=== PATIENT | male | born 1980 | race Caucasian/White ===

== ENCOUNTER 2017-12-17 15:08 | Emergency (ER) | END 2017-12-17 16:46 | disposition home or self-care (01) ==

== ENCOUNTER 2018-09-25 21:35 | Emergency (ER) | payer SELFPAY ==
[~2018-09-25] VITALS: Wt 164.3 kg
[~2018-09-25 21:35] MED LIST: HYDR25TA6 PO; IBUP-1542 PO
[2018-09-25] MEDS ORDERED: DOXA1TAB PO (22:34)
[2018-09-25] MEDS ORDERED: AMLO-147 PO (22:34)
[2018-09-25] MEDS ORDERED: POTA20TA96 PO (22:35)
[2018-09-25] MEDS ORDERED: HYDR50TA3 PO (22:35)
[2018-09-25] MEDS ORDERED: OMEP20CA16 PO (22:35)
[2018-09-25] MEDS ORDERED: LISI40TA3 PO (22:36)
[2018-09-25] MEDS ORDERED: OMEG-135 PO (22:36)
[2018-09-25] MEDS ORDERED: EMTR1TAB11 PO (22:36)
--- NOTE | 2018-09-25 23:37 | ERD ---
ER Documentation Chief Complaint Chief Complaint CP RADIATING TO LEFT ARM. LEFT FACIAL NUMBNESS X'S 2 DAYS HPI This is a 38-year-old male who presents for evaluation of chest pain with radiation to left arm, he endorses a tingling sensation and numbness, which is on and off for the last 2 days. He has a history of hypertension, but he is otherwise healthy, he denies leg swelling, he has not had any hemoptysis, he has not had a fever, no nausea or vomiting. He has no prior history of stroke, he has no history of coronary disease. ROS All systems reviewed and are negative except as per history of present illness. Medications Home Meds Reported Medications [place]-3 Fatty Acids/Fish Oil (Fish Oil 1,000 mg Capsule) 1 Each Capsule, 2 EACH PO DAILY, CAP 09/25/18 Emtricitabine-Tenofovir* (Truvada*) 200-300 Mg Tablet, 1 TAB PO DAILY, TAB 09/25/18 Lisinopril* (Lisinopril*) 40 Mg Tablet, 40 MG PO DAILY, #30 TAB 09/25/18 Hydrochlorothiazide* (Hydrochlorothiazide*) 50 Mg Tab, 25 MG PO DAILY, #30 TAB 09/25/18 Potassium Chloride* (Potassium Chloride*) 20 Meq Tablet.er, 20 MEQ PO DAILY, TAB.SA 09/25/18 Omeprazole* (Omeprazole*) 20 Mg Capsule.dr, 20 MG PO DAILY, #30 CAP 09/25/18 Amlodipine Besylate* (Amlodipine Besylate*) 10 Mg Tablet, 10 MG PO DAILY, #30 TAB 09/25/18 Doxazosin Mesylate* (Doxazosin Mesylate*) 1 Mg Tablet, 1 MG PO HS, TAB 09/25/18 Discontinued Scripts Ibuprofen* (Motrin*) 600 Mg Tab, 600 MG PO Q6, #20 TAB Prov:CHERY WORRELL MD 12/17/17 Hydrochlorothiazide* (Hydrochlorothiazide*) 25 Mg Tab, 25 MG PO DAILY, #30 TAB Prov:CHERY WORRELL MD 12/17/17 Allergies Allergies: Coded Allergies: No Known Allergy (Unverified , 09/25/18) PMhx/Soc History of Surgery: No Anesthesia Reaction: No Hx Neurological Disorder: No Hx Respiratory Disorders: No Hx Cardiac Disorders: Yes (HTN) Hx Psychiatric Problems: No Hx Miscellaneous Medical Probl: No Hx Alcohol Use: No Hx Substance Use: No Hx Tobacco Use: No Smoking Status: Never smoker FmHx Family History: No diabetes Physical Exam Vitals Vital Signs Date Temp Pulse Resp B/P (MAP) Pulse Ox O2 O2 Flow FiO2 Time Delivery Rate 09/25/18 91 18 129/73 98 Room Air 23:41 (91) 09/25/18 98.4 99 20 159/93 96 21:39 (115) Physical Exam Const: No acute distress Head: Atraumatic Eyes: Normal Conjunctiva ENT: Normal External Ears, Nose and Mouth. Neck: Full range of motion. No meningismus. Resp: Clear to auscultation bilaterally Cardio: Regular rate and rhythm, no murmurs, no JVD Abd: Soft, non tender, non distended. Normal bowel sounds Skin: No petechiae or rashes Back: No midline or flank tenderness Ext: No cyanosis, or edema Neur: Awake and alert, cranial nerves II through XII intact, strength 5 out of 5 bilaterally, so no cerebellar ataxia Psych: Normal Mood and Affect Result Diagram: 09/25/183 09/25/182212 Results 24 hrs Laboratory Tests Test 09/25/18 22:13 White Blood Count 8.6 10^3/ul Red Blood Count 4.62 10^6/ul Hemoglobin 12.1 g/dl Hematocrit 37.1 % Mean Corpuscular Volume 80.3 fl Mean Corpuscular Hemoglobin 26.2 pg Mean Corpuscular Hemoglobin Concent 32.6 g/dl Red Cell Distribution Width 15.0 % Platelet Count 276 10^3/UL Mean Platelet Volume 9.6 fl Immature Granulocytes % 0.200 % Neutrophils % 62.2 % Lymphocytes % 30.1 % Monocytes % 4.5 % Eosinophils % 2.5 % Basophils % 0.5 % Nucleated Red Blood Cells % 0.0 /100WBC Immature Granulocytes # 0.020 10^3/ul Neutrophils # 5.4 10^3/ul Lymphocytes # 2.6 10^3/ul Monocytes # 0.4 10^3/ul Eosinophils # 0.2 10^3/ul Basophils # 0.0 10^3/ul Nucleated Red Blood Cells # 0.0 10^3/ul Prothrombin Time 12.2 Sec Prothrombin Time Ratio 1.0 INR International Normalized Ratio 0.89 Sodium Level 139 mmol/L Potassium Level 3.2 mmol/L Chloride Level 101 mmol/L Carbon Dioxide Level 27 mmol/L Anion Gap 11 Blood Urea Nitrogen 13 mg/dl Creatinine 1.13 mg/dl Est Glomerular Filtrat Rate mL/min > 60 mL/min Glucose Level 92 mg/dl Calcium Level 9.6 mg/dl Total Bilirubin 0.1 mg/dl Direct Bilirubin 0.00 mg/dl Indirect Bilirubin 0.1 mg/dl Aspartate Amino Transf (AST/SGOT) 33 IU/L Alanine Aminotransferase (ALT/SGPT) 22 IU/L Alkaline Phosphatase 113 IU/L Troponin I < 0.012 ng/ml Total Protein 8.5 g/dl Albumin 4.3 g/dl Globulin 4.20 g/dl Albumin/Globulin Ratio 1.02 Procedures/MDM This is a 38-year-old male who presents for evaluation of chest pain with tingling to his face and head. On exam patient is afebrile and nontoxic- appearing, his EKG showed no evidence of acute ischemia, and his troponin was negative. Patient's only major risk factors hypertension, he has been having symptoms for some time, and based on his heart score, he is at low risk. He has no neurologic deficits, and based on the distribution of his symptoms, I do not suspect acute CVA. He actually has follow-up with his primary care doctor within 72 hours, on Friday, and I think this is a reasonable timeframe for follow-up. I did caution him to return for any worsening chest pain, any changes in his symptoms, or any other concerning symptoms at all, at discharge she was in no acute distress. EKG: Rate/Rhythm: Normal Sinus Rhythm QRS, ST, T-waves: No changes consistent w/ acute ischemia Impression: No evidence of ischemia or arrhythmia Departure Diagnosis: Primary Impression: Chest pain Chest pain type: unspecified Qualified Codes: R07.9 - Chest pain, unspecified Additional Impression: Numbness Condition: Stable ANETA KRISHNAMURTHY MD Sep 25, 2018 23:37
[2018-09-25 23:41] VITALS: BP 129/73; PULSE 91; RESP 18
== END 2018-09-26 00:01 | disposition home or self-care (01) ==
LOC: E/R 21:35
DX: R07.9 Chest pain, unspecified (principal); R20.0 Anesthesia of skin; I10 Essential (primary) hypertension
CPT/HCPCS: 71045; 80053; 84484; 85025; 85610; 93005

== ENCOUNTER 2018-12-14 22:06 | Emergency (ER) | payer SELFPAY ==
[~2018-12-14] VITALS: Ht 185.4 cm; Wt 166.5 kg
[~2018-12-14 22:06] MED LIST changes: +AMLO-147 PO; +DOXA1TAB PO; +EMTR1TAB11 PO; -HYDR25TA6 PO; +HYDR50TA3 PO; -IBUP-1542 PO; +LISI40TA3 PO; +OMEG-135 PO; +OMEP20CA16 PO; +POTA20TA96 PO
[2018-12-14 22:08] VITALS: Ht 185.4 cm; Wt 166.5 kg
[2018-12-15] MEDS: LABETALOL HCL 20MG INJ IV ONE ×2 (05:00→06:13)
--- NOTE | 2018-12-15 05:38 | ERD ---
ER Documentation Chief Complaint Chief Complaint ELEVATED BP; WITH DIZZINESS, HEADACHE, N/V X3DAYS; NO CP HPI This is a 38-year-old with elevated blood pressure. Patient had dizziness and a headache with mild nausea and vomiting times 3 days. Patient denies chest pain. Denies shortness of breath. Denies any other current complaints. ROS All systems reviewed and are negative except as per history of present illness. Medications Home Meds Reported Medications [place]-3 Fatty Acids/Fish Oil (Fish Oil 1,000 mg Capsule) 1 Each Capsule, 2 EACH PO DAILY, CAP 09/25/18 Emtricitabine-Tenofovir* (Truvada*) 200-300 Mg Tablet, 1 TAB PO DAILY, TAB 09/25/18 Lisinopril* (Lisinopril*) 40 Mg Tablet, 40 MG PO DAILY, #30 TAB 09/25/18 Hydrochlorothiazide* (Hydrochlorothiazide*) 50 Mg Tab, 25 MG PO DAILY, #30 TAB 09/25/18 Potassium Chloride* (Potassium Chloride*) 20 Meq Tablet.er, 20 MEQ PO DAILY, TAB.SA 09/25/18 Omeprazole* (Omeprazole*) 20 Mg Capsule.dr, 20 MG PO DAILY, #30 CAP 09/25/18 Amlodipine Besylate* (Amlodipine Besylate*) 10 Mg Tablet, 10 MG PO DAILY, #30 TAB 09/25/18 Doxazosin Mesylate* (Doxazosin Mesylate*) 1 Mg Tablet, 1 MG PO HS, TAB 09/25/18 Allergies Allergies: Coded Allergies: No Known Allergy (Unverified , 09/25/18) PMhx/Soc History of Surgery: No Anesthesia Reaction: No Hx Neurological Disorder: No Hx Respiratory Disorders: No Hx Cardiac Disorders: Yes (HTN) Hx Psychiatric Problems: No Hx Miscellaneous Medical Probl: Yes (Sleep apnea) Hx Alcohol Use: No Hx Substance Use: No Hx Tobacco Use: No Smoking Status: Never smoker Physical Exam Vitals Vital Signs Date Temp Pulse Resp B/P (MAP) Pulse Ox O2 O2 Flow FiO2 Time Delivery Rate 12/15/18 90 17 132/89 99 Room Air 04:55 (103) 12/15/18 93 18 151/92 100 Room Air 04:21 (111) 12/15/18 19 179/110 02:01 (133) 12/14/18 99.8 109 19 191/108 98 22:08 (135) Physical Exam Const: No acute distress Head: Atraumatic Eyes: Normal Conjunctiva ENT: Normal External Ears, Nose and Mouth. Neck: Full range of motion. No meningismus. Resp: Clear to auscultation bilaterally Cardio: Regular rate and rhythm, no murmurs Abd: Soft, non tender, non distended. Normal bowel sounds Skin: No petechiae or rashes Back: No midline or flank tenderness Ext: No cyanosis, or edema Neur: Awake and alert Psych: Normal Mood and Affect Result Diagram: 12/15/1844212/15/18442 Results 24 hrs Laboratory Tests Test 12/15/18 04:43 White Blood Count 9.1 10^3/ul Red Blood Count 4.80 10^6/ul Hemoglobin 12.5 g/dl Hematocrit 38.4 % Mean Corpuscular Volume 80.0 fl Mean Corpuscular Hemoglobin 26.0 pg Mean Corpuscular Hemoglobin Concent 32.6 g/dl Red Cell Distribution Width 15.3 % Platelet Count 250 10^3/UL Mean Platelet Volume 9.8 fl Immature Granulocytes % 0.200 % Neutrophils % 76.5 % Lymphocytes % 18.0 % Monocytes % 4.5 % Eosinophils % 0.6 % Basophils % 0.2 % Nucleated Red Blood Cells % 0.0 /100WBC Immature Granulocytes # 0.020 10^3/ul Neutrophils # 6.9 10^3/ul Lymphocytes # 1.6 10^3/ul Monocytes # 0.4 10^3/ul Eosinophils # 0.1 10^3/ul Basophils # 0.0 10^3/ul Nucleated Red Blood Cells # 0.0 10^3/ul Sodium Level 141 mmol/L Potassium Level 3.1 mmol/L Chloride Level 101 mmol/L Carbon Dioxide Level 30 mmol/L Anion Gap 10 Blood Urea Nitrogen 10 mg/dl Creatinine 1.24 mg/dl Est Glomerular Filtrat Rate mL/min > 60 mL/min Glucose Level 108 mg/dl Calcium Level 9.8 mg/dl Total Bilirubin 0.4 mg/dl Direct Bilirubin 0.00 mg/dl Indirect Bilirubin 0.4 mg/dl Aspartate Amino Transf (AST/SGOT) 28 IU/L Alanine Aminotransferase (ALT/SGPT) 35 IU/L Alkaline Phosphatase 110 IU/L Troponin I Pending B-Type Natriuretic Peptide Pending Total Protein 8.6 g/dl Albumin 4.3 g/dl Globulin 4.30 g/dl Albumin/Globulin Ratio 1.00 Current Medications Medications Dose Sig/Jeff Start Time Status Last (Trade) Ordered Route PRN Stop Time Admin Dose Reason Admin Labetalol 10 mg ONCE ONCE 12/15/18 DC HCl IV 04:30 (Labetalol) 12/15/18 04:31 Procedures/MDM EKG: Rate/Rhythm: [Normal Sinus Rhythm] QRS, ST, T-waves: [No changes consistent w/ acute ischemia] Impression: [No evidence of ischemia or arrhythmia] Chest X-ray 1V Interpreted by me: Soft Tissue: No acute abnormalities Bones: No acute abnormalities Mediastinum/Cardiac Silhouette/Lungs: [No acute abnormalities] Medical decision making: Patient's thoracic symptoms have stabilized while in th e department and are stable for outpatient follow up. Exam and work up not consistent w/ ischemia, arrhythmia, PE or dissection. Patient's blood pressure was elevated (>120/80) but appears stable without evidence of hypertension emergency or urgency. The patient was counseled about the risks of hypertension and urged to pursue outpatient monitoring and therapy within a week with their primary care physician. Departure Diagnosis: Primary Impression: Hypertension Hypertension type: unspecified Qualified Codes: I10 - Essential (primary) hypertension Condition: Stable Patient Instructions: High Blood Pressure (Hypertension) JESSICA MADRID Dec 15, 2018 05:38
[2018-12-15 08:08] VITALS: BP 125/73; PULSE 75; RESP 19
== END 2018-12-15 08:40 | disposition home or self-care (01) ==
LOC: E/R 22:06
DX: I10 Essential (primary) hypertension (principal)
CPT/HCPCS: 36415; 70450; 71045; 80053; 83880; 84484; 85025; 93005; 96374